=== PATIENT | male | born 1990 | race Hispanic/Latino ===

== ENCOUNTER 2016-07-23 15:18 | Emergency (ER) | payer OTHER ==
[~2016-07-23] VITALS: Ht 170.2 cm; Wt 92.1 kg
[2016-07-23 15:23] VITALS: BP 164/92
--- NOTE | 2016-07-23 15:30 | ED GENERAL ADULT ---
History of Present Illness General Chief Complaint: General Adult Stated Complaint: RIGHT SIDE OF FACE SWOLLEN Source: patient Exam Limitations: no limitations Vital Signs & Intake/Output Vital Signs & Intake/Output Vital Signs Date Time Temp Pulse Resp B/P B/P Pulse O2 O2 Flow FiO2 Mean Ox Delivery Rate 07/23 1523 98.3 81 18 164/92 98 Room Air Allergies Coded Allergies: No Known Allergies (07/23/16) Triage Note: 26 YO MALE TO TRIAGE C/O SWELLING TO L SIDE OF FACE. PT STATES HE HAS A KNOWN CAVITY "FOR AWHILE" THAT HE HASNT HAD FIXED YET. STATES HIS MOUTH/FACE IS NUMB ON THE R SIDE, DENEIS PAIN. STATES HE TOOK A DOSE OF BRAZILLIAN AMOXICILLIN (UNSURE OF NAME) PT DENIES DIFF BREATHING. Triage Nurses Notes Reviewed? yes HPI: 26-year-old otherwise healthy male presenting with dental pain 2 months and right facial swelling since yesterday. Patient reports that he had a filling fall out of a lower right tooth 2 months ago, subsequently developed pain and noticed a small abscess but had no dental insurance and was unable to afford a dental visit. Reports that he began to feel pain and swelling in his right cheek last night, which acutely worsened over night into this morning. Denies fevers or purulent drainage. Denies shortness of breath, chest pain, difficulty breathing, difficulty swallowing, sore throat. (FANY MOORE,SATNAM) Reconcile Medications Amoxicillin/Potassium Clav (Augmentin 875-125 Tablet) 875 MG-125 MG TABLET 1 TAB PO BID dental infection (ALICE KAUFMAN,JESICA [place]) Past History Travel History Traveled to [place] past 21 day No Medical History Any Pertinent Medical History? none Neurological: NONE EENT: NONE Cardiovascular: NONE Respiratory: NONE Gastrointestinal: NONE Hepatic: NONE Renal: NONE Musculoskeletal: NONE Psychiatric: NONE Endocrine: NONE Blood Disorders: NONE Cancer(s): NONE FIREBREAK CUTTER/Reproductive: NONE Surgical History Surgical History: non-contributory Psychosocial History What is your primary language Hungarian Tobacco Use: Never used Family History Hx Contributory? No (FANY MOORE,SATNAM) Review of Systems Review of Systems Constitutional: Reports: no symptoms. EENTM: Reports: see HPI, tooth pain. Denies: throat pain, throat swelling. Respiratory: Reports: no symptoms. Cardiovascular: Reports: no symptoms. GI: Reports: no symptoms. Genitourinary: Reports: no symptoms. Musculoskeletal: Reports: no symptoms. Neurological/Psychological: Reports: no symptoms. (FAYN MOORE,SATNAM) Physical Exam Physical Exam General Appearance: well developed/nourished, no apparent distress, alert, comfortable Head: atraumatic Ears, Nose, Throat: normal pharynx, on exam there is dental caries noted to tooth #31, the tooth is tender to palpation with tooth thrust, the surrounding gingiva is erythematous with a notable dental abscess,the right cheek is tender palpation with edema, no overlying skin erythema, no tenderness to palpation or edema to the floor of the mouth the mouth Neck: normal inspection, supple Respiratory: normal breath sounds, no respiratory distress, lungs clear Cardiovascular: regular rate/rhythm, normal peripheral pulses Neurologic/Psych: awake, alert, oriented x 3, normal gait Core Measures ACS in differential dx? No CVA/TIA Diagnosis: No Severe Sepsis Present: No Septic Shock Present: No (SATNAM SOARES PA-C) Progress Differential Diagnoses I considered the following diagnoses in my evaluation of the patient: [dental caries vs abscess vs cellulitis vs juni's angina] Plan of Care: Current Medications Sig/Lambert Start time Last Medication Dose Stop Time Status Admin Amoxicillin/ 875 MG ONCE ONE 07/23 1600 AC Clavulanate Potassium 07/23 1601 (Augmentin) No signs of respiratory distress or juni's angina on exam. Exam consistent with dental abscess that has extended into cellulitis of the right cheek. We'll begin patient on Augmentin. Patient now has dental insurance and will follow up with a dentist for reevaluation. (SATNAM SOARES PA-C) Initial ED EKG: none (SATNAM SOARES PA-C) Departure Departure Disposition: HOME OR SELF CARE Condition: Stable Clinical Impression Primary Impression: Dental abscess Secondary Impressions: Facial cellulitis Referrals: DEL KAUFMAN,NAUN Hunter Additional Instructions: Take 875 mg of Augmentin by mouth twice daily for 7 days. Follow up with a dentist as soon as possible for evaluation of your missing dental filling and for re-evalution. Return to the ED for any new or worsening symptoms. Departure Forms: Customer Survey General Discharge Information (SATNAM SOARES PA-C) Departure Prescriptions: Current Visit Scripts Amoxicillin/Potassium Clav (Augmentin 875-125 Tablet) 1 TAB PO BID 7 Days PA/STITCHER STANDARD MACHINE Co-Sign Statement Statement: ED Attending supervision documentation- [] I saw and evaluated the patient. I have also reviewed all the pertinent lab results and diagnostic results. I agree with the findings and the plan of care as documented in the PA's/STITCHER STANDARD MACHINE's documentation. [X] I have reviewed the ED Record and agree with the PA's/STITCHER STANDARD MACHINE's documentation. [] Additions or exceptions (if any) to the PAs/STITCHER STANDARD MACHINE's note and plan are summarized below: [] (ALICE KAUFMAN,JESICA [place]) Critical Care Note Critical Care Note Critical Care Time: non-applicable (FANY MOORE,SATNAM)
[2016-07-23] MEDS ORDERED: AUGMENTIN 875-1 EACH PO (16:09)
== END 2016-07-23 16:20 ==
LOC: ERH 15:18
DX: K04.7 Periapical abscess without sinus (principal); L03.211 Cellulitis of face